=== PATIENT | female | born 1995 | race Caucasian/White ===

== ENCOUNTER 2018-02-05 22:42 | Inpatient (IN) | payer MEDICAID ==
[2018-02-06] MEDS ORDERED: ONDANSETRON 4 MG INJ IV
[2018-02-06] MEDS: LACTATED RINGER'S 1,000 ML IV ×6 (00:17→23:42)
[2018-02-06 00:51] LABS: ADD MAN DIFF? NO
[2018-02-06 00:53] LABS: WHITE BLOOD COUNT 10.3 10^3/ul (4.8-10.8)
[2018-02-06 00:53] LABS: BASOPHILS % 0.2 % (0.0-2.0); EOSINOPHILS % 0.1 % (0.0-7.0); HEMATOCRIT 34.8 % (37.0-47.0); HEMOGLOBIN 11.8 g/dl (12.0-16.0); LYMPHOCYTES % 9.8 % (18.0-55.0); MEAN CORPUSCULAR HGB CONC 33.9 g/dl (32.0-37.0); MEAN CORPUSCULAR VOLUME 85.5 fl (72.0-104.0); MEAN PLATELET VOLUME 12.6 fl (7.4-10.4); MONOCYTE # 0.4 10^3/ul (0.3-0.9); MONOCYTES % 3.8 % (0.0-13.0); NEUTROPHIL # 8.8 10^3/ul (1.6-7.5); NEUTROPHILS % 85.4 % (30.0-74.0); PLATELET COUNT 204 10^3/UL (140-415); RED BLOOD COUNT 4.07 10^6/ul (4.20-5.40); RED CELL DISTRIBUTION WIDTH 13.5 % (11.5-14.5)
[2018-02-06 01:10] LABS: ALANINE AMINOTRANSFERASE 15 IU/L (13-69); ALBUMIN 3.7 g/dl (3.3-4.9); ALBUMIN/GLOBULIN RATIO 1.12; ALKALINE PHOSPHATASE 261 IU/L (42-121); ANION GAP 15 (8-16); ASPARTATE AMINO TRANSFERASE 26 IU/L (15-46); BILIRUBIN,INDIRECT 0.3 mg/dl (0-1.1); BILIRUBIN,TOTAL 0.3 mg/dl (0.2-1.3); BLOOD UREA NITROGEN 10 mg/dl (7-20); CALCIUM 8.6 mg/dl (8.4-10.2); CARBON DIOXIDE 23 mmol/L (21-31); CHLORIDE 103 mmol/L (97-110); CREATININE 0.51 mg/dl (0.44-1.00); GLUCOSE 73 mg/dl (70-220); POTASSIUM 3.9 mmol/L (3.5-5.1); SODIUM 137 mmol/L (135-144)
[2018-02-06 04:10] LABS: URINE BLOOD (Dip) POC Negative (NEGATIVE); URINE GLUCOSE (Dip) POC Negative (NEGATIVE); URINE KETONES (Dip) POC 4+ (NEGATIVE); URINE LEUKOCYTE EST (Dip) POC Trace (NEGATIVE); URINE NITRITE (Dip) POC Negative (NEGATIVE); URINE TOTAL PROTEIN POC 2+ (NEGATIVE)
[2018-02-06 04:10] LABS: URINE PH (Dip) POC 7.5 (5.0-8.5)
[2018-02-07] MEDS: LACTATED RINGER'S 1,000 ML IV ×6 (01:00→23:42)
[2018-02-08] MEDS: LACTATED RINGER'S 1,000 ML IV ×3 (02:33→15:09)
[2018-02-08] MEDS ORDERED: LACTATED RINGER'S 1,000 ML IV (13:18)
[2018-02-08] MEDS ORDERED: OXYTOCIN 30 UNITS/LR 500 ML IV ×4 (13:30→19:30)
[2018-02-08] MEDS ORDERED: LIDOCAINE 1% (MPF) 30 ML INJ INJ (13:30)
[2018-02-08] MEDS ORDERED: BUTORPHANOL 2 MG INJ IV (13:30)
[2018-02-08] MEDS ORDERED: IBUPROFEN 600 MG TAB PO ×2 (13:30→22:00)
[2018-02-08 14:19] LABS: ADD MAN DIFF? NO
[2018-02-08 14:22] LABS: BASOPHILS % 0.4 % (0.0-2.0); EOSINOPHILS % 0.3 % (0.0-7.0); HEMATOCRIT 37.2 % (37.0-47.0); HEMOGLOBIN 12.3 g/dl (12.0-16.0); LYMPHOCYTES # 1.7 10^3/ul (0.8-2.9); MEAN CORPUSCULAR HEMOGLOBIN 28.5 pg (29.0-33.0); MEAN CORPUSCULAR HGB CONC 33.1 g/dl (32.0-37.0); MEAN CORPUSCULAR VOLUME 86.1 fl (72.0-104.0); MONOCYTE # 0.5 10^3/ul (0.3-0.9); MONOCYTES % 5.3 % (0.0-13.0); NEUTROPHIL # 7.3 10^3/ul (1.6-7.5); NEUTROPHILS % 75.4 % (30.0-74.0); PLATELET COUNT 195 10^3/UL (140-415); RED BLOOD COUNT 4.32 10^6/ul (4.20-5.40); RED CELL DISTRIBUTION WIDTH 14.1 % (11.5-14.5)
[2018-02-08 14:22] LABS: WHITE BLOOD COUNT 9.7 10^3/ul (4.8-10.8)
[2018-02-08] MEDS ORDERED: EPHEDrine SULFATE 50 MG/5 ML SYG IV (14:30)
[2018-02-08] MEDS ORDERED: NALOXONE (0.4 MG/ML) INJ IV ×2 (14:30→18:00)
[2018-02-08] MEDS ORDERED: FENTAnyl 2MCG/ML-ROPIV 0.2% 100 ML BAG EPI (14:30)
[2018-02-08] MEDS ORDERED: ONDANSETRON 4 MG INJ IV ×2 (14:30→18:00)
[2018-02-08] MEDS ORDERED: DIPHENHYDRAMINE 50 MG INJ IV ×2 (14:30→18:00)
[2018-02-08 14:43] LABS: INR 0.85; PROTIME 11.7 Sec (11.9-14.9); PT RATIO 0.9
[2018-02-08 14:44] LABS: PARTIAL THROMBOPLASTIN TIME 29.7 Sec (25.0-35.0)
[2018-02-08 15:09] LABS: HEPATITIS B SURFACE ANTIGEN NEGATIVE (NEGATIVE)
[2018-02-08] MEDS ORDERED: EPHEDrine SULFATE 50 MG/5 ML SYG (16:38)
[2018-02-08] MEDS ORDERED: morphine SULFATE/PF (10 MG/10 ML) INJ (16:39)
[2018-02-08] MEDS ORDERED: METHYLERGONOVINE 0.2 MG INJ (16:42)
[2018-02-08] MEDS ORDERED: ONDANSETRON 4 MG INJ (16:44)
[2018-02-08] MEDS ORDERED: METOCLOPRAMIDE 10 MG INJ (16:45)
[2018-02-08] MEDS ORDERED: OXYTOCIN 10 UNIT INJ ×2 (16:45→17:13)
[2018-02-08 17:05] LABS: CBV Base Excess -3.9 mmol/L; CBV COHb 0.3 %; CBV Total Hemglobin 15.5 g/dl; Cord Blood Venous pO2 11.1 mmHG (15.0-45.0); Fraction OxyHgb Cord Venous 13.3 %; MODE VENT - AC; Sample Type Blood venous; Site CORD
[2018-02-08] MEDS ORDERED: LIDOCAINE 2% (SDV) 5 ML INJ (17:05)
[2018-02-08] MEDS ORDERED: CEFAZOLIN 1 GM INJ (17:05)
[2018-02-08] MEDS ORDERED: SUCCINYLCHOLINE CHLORIDE 100 MG/5 ML SYG IV ×2 (17:05→17:12)
[2018-02-08] MEDS ORDERED: PROPOFOL 20 ML (17:05)
[2018-02-08] MEDS ORDERED: morphine 2 MG INJ IV ×2 (18:00)
[2018-02-08] MEDS: OXYTOCIN 30 UNITS/LR 500 ML IV ×2 (18:33→19:17)
[2018-02-08] MEDS ORDERED: METHYLERGONOVINE 0.2 MG TAB PO (19:30)
[2018-02-08] MEDS ORDERED: LANOLIN 7 GM TUBE TOP (19:30)
[2018-02-08] MEDS ORDERED: CARBOPROST 250 MCG INJ IM (19:30)
[2018-02-08] MEDS ORDERED: HYDROCODONE/APAP (5/325) TAB PO ×2 (19:30)
[2018-02-08] MEDS ORDERED: METHYLERGONOVINE 0.2 MG INJ IM (19:30)
[2018-02-08] MEDS ORDERED: MISOPROSTOL 200 MCG TAB PR (19:30)
[2018-02-08] MEDS: KETOROLAC 30 MG INJ IV (19:35)
[2018-02-08] MEDS: DEXTROSE 5%-LR 1,000 ML IV (20:30)
[2018-02-08] MEDS: morphine SULFATE/PF (10 MG/10 ML) INJ EPI (20:30)
[2018-02-08] MEDS: OXYCODONE/ACETAMINOPHEN (5/325) TAB PO (20:30)
[2018-02-08] MEDS: SENNA/DOCUSATE NA (8.6MG/50MG) TAB PO (21:00)
[2018-02-08] MEDS: IBUPROFEN 800 MG TAB PO (22:00)
[2018-02-08 22:18] LABS: RAPID PLASMA REAGIN NONREACTIVE (NR)
[2018-02-08] MEDS: PIPER-TAZO 3.375 GM IV (PMX) 100 ML IVPB (22:41)
[2018-02-09] MEDS: SOD CHLORIDE 0.9% 500 ML IV (00:24)
[2018-02-09] MEDS: ACETAMINOPHEN 500 MG TAB PO (00:42)
[2018-02-09] MEDS: SOD CHLORIDE 0.9% 1,000 ML IV ×3 (01:21→12:25)
[2018-02-09] MEDS: DEXTROSE 5%-LR 1,000 ML IV ×4 (03:17→23:13)
[2018-02-09] MEDS: OXYCODONE/ACETAMINOPHEN (5/325) TAB PO ×4 (03:30→20:28)
[2018-02-09] MEDS: IBUPROFEN 800 MG TAB PO ×3 (06:00→18:39)
[2018-02-09] MEDS: PIPER-TAZO 3.375 GM IV (PMX) 100 ML IVPB ×3 (06:40→22:25)
[2018-02-09] MEDS: KETOROLAC 30 MG INJ IV ×2 (06:46→12:24)
[2018-02-09] MEDS: SENNA/DOCUSATE NA (8.6MG/50MG) TAB PO ×2 (09:00→20:28)
[2018-02-09 10:48] LABS: WHITE BLOOD COUNT 11.4 10^3/ul (4.8-10.8)
[2018-02-09 10:48] LABS: ABNORMAL IP MESSAGE 1; HEMATOCRIT 19.4 % (37.0-47.0); MEAN CORPUSCULAR HEMOGLOBIN 29.5 pg (29.0-33.0); MEAN CORPUSCULAR VOLUME 86.6 fl (72.0-104.0); MEAN PLATELET VOLUME 11.9 fl (7.4-10.4); PLATELET COUNT 141 10^3/UL (140-415); RED BLOOD COUNT 2.24 10^6/ul (4.20-5.40); RED CELL DISTRIBUTION WIDTH 14.2 % (11.5-14.5)
[2018-02-09 10:50] LABS: POSITIVE DIFF @See below
[2018-02-09 10:53] LABS: ADD MAN DIFF? YES; HEMOGLOBIN 6.6 g/dl (12.0-16.0)
[2018-02-09 11:20] LABS: ANISOCYTOSIS 2+ (0-0); BAND NEUTROPHILS #M 0.3 10^3/ul (0.0-0.6); BAND NEUTROPHILS % (M) 3 % (0-10); EOSINOPHILS % (M) 1 % (0-7); GIANT THROMBO% (M) 2 % (0-0); LYMPHOCYTES #M 1.8 10^3/ul (0.8-2.9); LYMPHOCYTES % (M) 16 % (18-55); MICROCYTOSIS 2+ (0-0); MONOCYTE #M 0.5 10^3/ul (0.3-0.9); MONOCYTES % (M) 5 % (0-13); OVALOCYTES 1+ (0-0); PLATELET ESTIMATE NORMAL; POLYCHROMASIA 2+ (0-0); SEG NEUT #M 8.6 10^3/ul (1.6-7.5); SEGMENTED NEUTROPHILS (M) % 75 % (30-74); SMUDGE%M 6 % (0-0)
[2018-02-09 11:22] LABS: PATH REVIEW? YES
[2018-02-09] MEDS: LACTATED RINGER'S 1,000 ML IV (17:34)
[2018-02-09] MEDS: POLYSACCHARIDE IRON COMPLEX CAP PO (22:19)
[2018-02-09 23:38] LABS: IMMEDIATE SPIN CROSSMATCH 1 2
[2018-02-10] MEDS: SOD CHLORIDE 0.9% 1,000 ML IV
[2018-02-10] MEDS ORDERED: BISACODYL 10 MG SUPP PR ×2 (00:30→16:30)
[2018-02-10] MEDS: MAGNESIUM HYDROXIDE 30ML CUP PO (00:39)
[2018-02-10] MEDS: OXYCODONE/ACETAMINOPHEN (5/325) TAB PO ×3 (04:18→20:21)
[2018-02-10] MEDS: IBUPROFEN 800 MG TAB PO ×3 (06:16→22:31)
[2018-02-10] MEDS: PIPER-TAZO 3.375 GM IV (PMX) 100 ML IVPB ×3 (06:16→22:31)
[2018-02-10 10:51] LABS: ADD MAN DIFF? NO
[2018-02-10 10:54] LABS: BASOPHILS % 0.2 % (0.0-2.0); EOSINOPHILS # 0.1 10^3/ul (0.0-0.5); EOSINOPHILS % 0.9 % (0.0-7.0); HEMATOCRIT 26.4 % (37.0-47.0); HEMOGLOBIN 8.7 g/dl (12.0-16.0); LYMPHOCYTES # 2.1 10^3/ul (0.8-2.9); LYMPHOCYTES % 15.2 % (18.0-55.0); MEAN CORPUSCULAR HEMOGLOBIN 28.2 pg (29.0-33.0); MEAN CORPUSCULAR VOLUME 85.7 fl (72.0-104.0); MEAN PLATELET VOLUME 12.2 fl (7.4-10.4); MONOCYTE # 0.7 10^3/ul (0.3-0.9); MONOCYTES % 5.2 % (0.0-13.0); NEUTROPHIL # 10.7 10^3/ul (1.6-7.5); NEUTROPHILS % 77.9 % (30.0-74.0); PLATELET COUNT 147 10^3/UL (140-415); RED BLOOD COUNT 3.08 10^6/ul (4.20-5.40); RED CELL DISTRIBUTION WIDTH 14.8 % (11.5-14.5)
[2018-02-10 10:54] LABS: WHITE BLOOD COUNT 13.7 10^3/ul (4.8-10.8)
[2018-02-10] MEDS: POLYSACCHARIDE IRON COMPLEX CAP PO ×2 (11:12→22:08)
[2018-02-10] MEDS: SENNA/DOCUSATE NA (8.6MG/50MG) TAB PO ×2 (11:12→20:20)
[2018-02-11] MEDS: OXYCODONE/ACETAMINOPHEN (5/325) TAB PO ×2 (03:33→11:20)
[2018-02-11] MEDS: IBUPROFEN 800 MG TAB PO (05:53)
[2018-02-11] MEDS: PIPER-TAZO 3.375 GM IV (PMX) 100 ML IVPB ×2 (05:53→14:41)
[2018-02-11] MEDS ORDERED: MEASLES,MUMPS,RUBELLA VACCINE INJ SC* (09:00)
[2018-02-11] MEDS ORDERED: DIPHTH/TET/ACEL PERTUSS (ADULT) 0.5 ML VIAL IM* (09:00)
[2018-02-11] MEDS: SENNA/DOCUSATE NA (8.6MG/50MG) TAB PO (09:16)
[2018-02-11] MEDS: POLYSACCHARIDE IRON COMPLEX CAP PO (09:16)
== END 2018-02-11 17:20 | disposition home or self-care (01) | DRG 766 ==
LOC: L-D 02-06 09:40 → OBT 22:42 → L-D 22:42 → PP1 02-08 20:33
PROC: 10D00Z1 Extraction of Products of Conception, Low, Open Approach (ICD-10-PCS; principal; 2018-02-08 16:30)
PROC: 3E033VJ Introduction of Other Hormone into Peripheral Vein, Percutaneous Approach (ICD-10-PCS; 2018-02-08 16:30)
DX: O32.8XX0 Maternal care for other malpresentation of fetus, not applicable or unspecified (principal); O34.13 Maternal care for benign tumor of corpus uteri, third trimester; D25.1 Intramural leiomyoma of uterus; O99.02 Anemia complicating childbirth; Z3A.37 37 weeks gestation of pregnancy; Z37.0 Single live birth
CPT/HCPCS: 36415; 36430; 62319; 76818; 80053; 81003; 82803; 85025; 85610; 85730; 86592; 86850; 86900; 86901; 86920; 87340; 94760; 96360; 96361; 99464

== ENCOUNTER 2019-05-07 20:41 | Emergency (ER) | payer OTHER | END 2019-05-08 01:57 | disposition home or self-care (01) | LOC: FTE 20:41 → E/R 05-08 01:57 | DX: O99.89 Other specified diseases and conditions complicating pregnancy, childbirth and the puerperium (principal); H33.22 Serous retinal detachment, left eye; Z3A.26 26 weeks gestation of pregnancy | CPT/HCPCS: 76536; 99284-25 ==

== ENCOUNTER 2019-07-11 18:52 | Outpatient (CLI) | payer OTHER ==
[2019-07-11 20:49] LABS: ADD UMIC YES; UR ASCORBIC ACID NEGATIVE (NEGATIVE); UR BACTERIA FEW /HPF (NONE SEEN); UR BILIRUBIN (Dip) NEGATIVE (NEGATIVE); UR BLOOD (Dip) 2+ mg/dL (NEGATIVE); UR CLARITY CLOUDY (CLEAR); UR COLOR AMBER (YELLOW); UR GLUCOSE (Dip) NEGATIVE (NEGATIVE); UR KETONES (Dip) TRACE mg/dL (NEGATIVE); UR LEUKOCYTE ESTERASE (Dip) 1+ Leu/ul (NEGATIVE); UR MUCUS MANY /HPF (NONE SEEN); UR NITRITE (Dip) NEGATIVE (NEGATIVE); UR RBC 5 /HPF (0-5); UR SPECIFIC GRAVITY (Dip) 1.033 (1.003-1.030); UR SQUAMOUS EPITHELIAL CELL MODERATE /HPF (FEW); UR TOTAL PROTEIN (Dip) 2+ mg/dl (NEGATIVE); UR UROBILINOGEN (Dip) 2+ mg/dL (NEGATIVE); UR WBC 7 /HPF (0-5)
[2019-07-11 23:13] LABS: ADD MAN DIFF? NO
[2019-07-11 23:14] LABS: WHITE BLOOD COUNT 9.7 10^3/ul (4.8-10.8)
[2019-07-11 23:14] LABS: BASOPHILS % 0.4 % (0.0-2.0); EOSINOPHILS # 0.1 10^3/ul (0.0-0.5); EOSINOPHILS % 0.8 % (0.0-7.0); HEMATOCRIT 29.7 % (37.0-47.0); HEMOGLOBIN 9.1 g/dl (12.0-16.0); LYMPHOCYTES # 2.4 10^3/ul (0.8-2.9); LYMPHOCYTES % 24.8 % (15.0-51.0); MEAN CORPUSCULAR HEMOGLOBIN 25.1 pg (29.0-33.0); MEAN CORPUSCULAR HGB CONC 30.6 g/dl (32.0-37.0); MEAN PLATELET VOLUME 12.3 fl (7.4-10.4); MONOCYTE # 0.9 10^3/ul (0.3-0.9); NEUTROPHIL # 6.2 10^3/ul (1.6-7.5); NEUTROPHILS % 64.1 % (39.0-77.0); NUCLEATED RED BLOOD CELLS% 0.2 /100WBC (0.0-0.0); PLATELET COUNT 228 10^3/UL (140-415); RED BLOOD COUNT 3.62 10^6/ul (4.20-5.40); RED CELL DISTRIBUTION WIDTH 15.6 % (11.5-14.5)
[2019-07-12] MEDS: LACTATED RINGER'S 1,000 ML IV ×2 (00:57→01:45)
== END 2019-07-12 03:58 | disposition home or self-care (01) ==
LOC: OBT 18:52 → L-D 18:52
DX: O26.853 Spotting complicating pregnancy, third trimester (principal); Z3A.35 35 weeks gestation of pregnancy
CPT/HCPCS: 36415; 76815; 81001; 85025; 86850; 86900; 86901; 96360; 96361

== ENCOUNTER 2019-07-18 10:39 | Inpatient (IN) | payer OTHER ==
[2019-07-18] MEDS: LACTATED RINGER'S 1,000 ML IV ×2 (13:08→14:15)
[2019-07-18] MEDS: TERBUTALINE 1 MG/ML INJ SC ×2 (13:32→15:46)
[2019-07-18 14:00] LABS: ADD MAN DIFF? NO
[2019-07-18 14:05] LABS: WHITE BLOOD COUNT 11.2 10^3/ul (4.8-10.8)
[2019-07-18 14:05] LABS: ABNORMAL IP MESSAGE 1; BASOPHILS % 0.3 % (0.0-2.0); EOSINOPHILS # 0.1 10^3/ul (0.0-0.5); EOSINOPHILS % 0.6 % (0.0-7.0); HEMATOCRIT 33.5 % (37.0-47.0); HEMOGLOBIN 10.2 g/dl (12.0-16.0); LYMPHOCYTES # 2.3 10^3/ul (0.8-2.9); LYMPHOCYTES % 20.3 % (15.0-51.0); MEAN CORPUSCULAR HEMOGLOBIN 24.7 pg (29.0-33.0); MEAN CORPUSCULAR HGB CONC 30.4 g/dl (32.0-37.0); MEAN CORPUSCULAR VOLUME 81.1 fl (82.0-101.0); MEAN PLATELET VOLUME 12.6 fl (7.4-10.4); MONOCYTE # 0.7 10^3/ul (0.3-0.9); MONOCYTES % 5.8 % (0.0-11.0); NEUTROPHIL # 8.1 10^3/ul (1.6-7.5); NEUTROPHILS % 72.4 % (39.0-77.0); NUCLEATED RED BLOOD CELLS% 0.2 /100WBC (0.0-0.0); PLATELET COUNT 224 10^3/UL (140-415); RED BLOOD COUNT 4.13 10^6/ul (4.20-5.40); RED CELL DISTRIBUTION WIDTH 16.1 % (11.5-14.5)
[2019-07-18 14:08] LABS: POSITIVE DIFF @See below
[2019-07-18] MEDS: BETAMET NA PHOS/AC(6 MG/ML) 2 ML INJ SYG IM (14:10)
[2019-07-18] MEDS ORDERED: CEFAZOLIN 2 GM/50 ML (PMX) 50 ML IVPB (17:00)
[2019-07-18] MEDS ORDERED: CARBOPROST 250 MCG INJ IM ×2 (17:00→22:00)
[2019-07-18] MEDS ORDERED: METHYLERGONOVINE 0.2 MG INJ IM ×2 (17:00→22:00)
[2019-07-18] MEDS ORDERED: MISOPROSTOL 200 MCG TAB PR ×2 (17:00→22:00)
[2019-07-18] MEDS ORDERED: OXYTOCIN 10 UNIT INJ (17:33)
[2019-07-18] MEDS ORDERED: ONDANSETRON 4 MG INJ (17:33)
[2019-07-18] MEDS ORDERED: morphine SULFATE/PF (10 MG/10 ML) INJ (17:33)
[2019-07-18 17:45] LABS: INR 0.86; PARTIAL THROMBOPLASTIN TIME 27.8 Sec (23.0-35.0); PROTIME 11.8 Sec (11.9-14.9); PT RATIO 0.9
[2019-07-18] MEDS ORDERED: MIDAZOLAM 1 MG/ML 2 ML INJ (18:03)
[2019-07-18] MEDS ORDERED: PHENYLephrine 10 MG INJ (18:16)
[2019-07-18] MEDS ORDERED: DIPHENHYDRAMINE 50 MG INJ IV (19:00)
[2019-07-18] MEDS ORDERED: ONDANSETRON 4 MG INJ IV (19:00)
[2019-07-18] MEDS ORDERED: NALOXONE (0.4 MG/ML) INJ IV (19:00)
[2019-07-18] MEDS ORDERED: morphine 2 MG INJ IV (19:00)
[2019-07-18] MEDS: KETOROLAC 30 MG INJ IV ×2 (21:08→21:45)
[2019-07-18] MEDS: OXYTOCIN 30 UNITS/LR 500 ML IV (21:36)
[2019-07-18] MEDS ORDERED: NA PHOSPHATE/BIPHOS 133 ML ENEMA PR (22:00)
[2019-07-18] MEDS ORDERED: OXYTOCIN 30 UNITS/LR 500 ML IV (22:00)
[2019-07-18] MEDS ORDERED: OXYCODONE/ACETAMINOPHEN (5/325) TAB PO (22:00)
[2019-07-18] MEDS ORDERED: LANOLIN HPA 1 PKT TOP (22:00)
[2019-07-18] MEDS: IBUPROFEN 800 MG TAB PO (22:00)
[2019-07-19] MEDS: CLINDAMYCIN 300 MG CAP PO ×3 (00:23→12:29)
[2019-07-19] MEDS: CEFAZOLIN 2 GM/50 ML (PMX) 50 ML IVPB ×3 (01:24→09:30)
[2019-07-19] MEDS: LACTATED RINGER'S 1,000 ML IV (01:24)
[2019-07-19] MEDS: AZITHROMYCIN 500MG/NS (PMX) 250 ML IVPB (03:16)
[2019-07-19] MEDS: ACETAMINOPHEN 500 MG TAB PO (03:22)
[2019-07-19] MEDS: IBUPROFEN 800 MG TAB PO ×3 (06:00→22:07)
[2019-07-19 07:58] LABS: ADD MAN DIFF? NO
[2019-07-19 08:04] LABS: WHITE BLOOD COUNT 20.7 10^3/ul (4.8-10.8)
[2019-07-19 08:04] LABS: BASOPHILS % 0.1 % (0.0-2.0); HEMATOCRIT 25.9 % (37.0-47.0); LYMPHOCYTES # 1.2 10^3/ul (0.8-2.9); LYMPHOCYTES % 5.7 % (15.0-51.0); MEAN CORPUSCULAR HEMOGLOBIN 25.2 pg (29.0-33.0); MEAN CORPUSCULAR HGB CONC 30.9 g/dl (32.0-37.0); MEAN CORPUSCULAR VOLUME 81.4 fl (82.0-101.0); NEUTROPHIL # 18.4 10^3/ul (1.6-7.5); NEUTROPHILS % 88.5 % (39.0-77.0); PLATELET COUNT 193 10^3/UL (140-415); RED BLOOD COUNT 3.18 10^6/ul (4.20-5.40); RED CELL DISTRIBUTION WIDTH 15.9 % (11.5-14.5)
[2019-07-19] MEDS: SENNA/DOCUSATE NA (8.6MG/50MG) TAB PO ×2 (08:37→21:16)
[2019-07-19] MEDS: BISACODYL 10 MG SUPP PR (09:31)
[2019-07-19] MEDS: KETOROLAC 30 MG INJ IV (14:13)
[2019-07-19 15:35] LABS: RAPID PLASMA REAGIN NONREACTIVE (NR)
[2019-07-19] MEDS: GENTAMICIN 80 MG/NS (PMX) 50 ML IVPB (17:32)
[2019-07-19] MEDS: CLINDAMYCIN 900 MG (PMX) 50 ML IVPB ×2 (17:49→23:47)
[2019-07-19] MEDS: AMPICILLIN 2 GM/NS (PMX) 100 ML IVPB (18:52)
[2019-07-19] MEDS: HYDROCODONE/APAP (5/325) TAB PO (21:09)
[2019-07-20] MEDS: AMPICILLIN 2 GM/NS (PMX) 100 ML IVPB ×3 (00:27→12:12)
[2019-07-20] MEDS: GENTAMICIN 80 MG/NS (PMX) 50 ML IVPB ×2 (01:38→10:06)
[2019-07-20] MEDS: IBUPROFEN 800 MG TAB PO ×3 (05:43→21:11)
[2019-07-20] MEDS: CLINDAMYCIN 900 MG (PMX) 50 ML IVPB ×2 (05:44→12:12)
[2019-07-20 06:55] LABS: ADD MAN DIFF? NO
[2019-07-20 06:58] LABS: BASOPHILS % 0.2 % (0.0-2.0); EOSINOPHILS % 0.2 % (0.0-7.0); HEMATOCRIT 23.5 % (37.0-47.0); HEMOGLOBIN 7.1 g/dl (12.0-16.0); LYMPHOCYTES % 12.6 % (15.0-51.0); MEAN CORPUSCULAR HGB CONC 30.2 g/dl (32.0-37.0); MEAN CORPUSCULAR VOLUME 82.7 fl (82.0-101.0); MEAN PLATELET VOLUME 12.9 fl (7.4-10.4); MONOCYTE # 1.1 10^3/ul (0.3-0.9); MONOCYTES % 6.9 % (0.0-11.0); NEUTROPHIL # 12.7 10^3/ul (1.6-7.5); NEUTROPHILS % 79.2 % (39.0-77.0); PLATELET COUNT 187 10^3/UL (140-415); RED BLOOD COUNT 2.84 10^6/ul (4.20-5.40); RED CELL DISTRIBUTION WIDTH 16.3 % (11.5-14.5)
[2019-07-20] MEDS: SENNA/DOCUSATE NA (8.6MG/50MG) TAB PO ×2 (10:06→21:11)
[2019-07-20] MEDS: CIPROFLOXACIN 500 MG TAB PO (18:05)
[2019-07-20] MEDS: DOXYCYCLINE 100 MG TAB PO (21:11)
[2019-07-21] MEDS: IBUPROFEN 800 MG TAB PO ×3 (05:44→22:22)
[2019-07-21] MEDS: CIPROFLOXACIN 500 MG TAB PO ×2 (05:44→17:48)
[2019-07-21 09:27] LABS: ADD MAN DIFF? NO
[2019-07-21 09:29] LABS: BASOPHILS % 0.3 % (0.0-2.0); EOSINOPHILS # 0.1 10^3/ul (0.0-0.5); EOSINOPHILS % 0.5 % (0.0-7.0); HEMATOCRIT 27.2 % (37.0-47.0); HEMOGLOBIN 8.1 g/dl (12.0-16.0); LYMPHOCYTES # 2.9 10^3/ul (0.8-2.9); LYMPHOCYTES % 25.1 % (15.0-51.0); MEAN CORPUSCULAR HEMOGLOBIN 24.8 pg (29.0-33.0); MEAN CORPUSCULAR HGB CONC 29.8 g/dl (32.0-37.0); MEAN CORPUSCULAR VOLUME 83.4 fl (82.0-101.0); MONOCYTE # 0.6 10^3/ul (0.3-0.9); MONOCYTES % 5.6 % (0.0-11.0); NEUTROPHIL # 7.7 10^3/ul (1.6-7.5); NEUTROPHILS % 66.9 % (39.0-77.0); NUCLEATED RED BLOOD CELLS% 0.3 /100WBC (0.0-0.0); PLATELET COUNT 222 10^3/UL (140-415); RED BLOOD COUNT 3.26 10^6/ul (4.20-5.40); RED CELL DISTRIBUTION WIDTH 16.3 % (11.5-14.5)
[2019-07-21 09:29] LABS: WHITE BLOOD COUNT 11.5 10^3/ul (4.8-10.8)
[2019-07-21] MEDS: DOXYCYCLINE 100 MG TAB PO ×2 (09:43→20:56)
[2019-07-21] MEDS: SENNA/DOCUSATE NA (8.6MG/50MG) TAB PO ×2 (09:43→20:56)
[2019-07-21] MEDS: DIPHTH/TET/ACEL PERTUSS (ADULT) 0.5 ML VIAL IM* (09:43)
[2019-07-21] MEDS: MEASLES,MUMPS,RUBELLA VACCINE INJ SC* (09:43)
[2019-07-21 09:52] LABS: CREATININE 0.57 mg/dl (0.44-1.00)
[2019-07-21 09:52] LABS: BLOOD UREA NITROGEN 9 mg/dl (7-20)
[2019-07-21] MEDS ORDERED: ACETAMINOPHEN 325 MG TAB PO (17:30)
== END 2019-07-21 23:20 | disposition home or self-care (01) | DRG 786 ==
LOC: OBT 10:39 → L-D 10:39 → OBT 16:50 → L-D 16:50 → PP1 21:48
PROC: 10D00Z1 Extraction of Products of Conception, Low, Open Approach (ICD-10-PCS; principal; 2019-07-18 17:30)
PROC: 4A1HXCZ Monitoring of Products of Conception, Cardiac Rate, External Approach (ICD-10-PCS; 2019-07-18 17:30)
DX: O60.14X0 Preterm labor third trimester with preterm delivery third trimester, not applicable or unspecified (principal); O45.93 Premature separation of placenta, unspecified, third trimester; O34.219 Maternal care for unspecified type scar from previous cesarean delivery; O32.2XX0 Maternal care for transverse and oblique lie, not applicable or unspecified; O69.0XX0 Labor and delivery complicated by prolapse of cord, not applicable or unspecified; O99.214 Obesity complicating childbirth; Z3A.36 36 weeks gestation of pregnancy; Z37.0 Single live birth
CPT/HCPCS: 36415; 76818; 82565; 84520; 85025; 85610; 85730; 86592; 86850; 86900; 86901; 96360; 96361; 96372; 99464